=== PATIENT | male | born 1960 | race Caucasian/White ===

== ENCOUNTER 2020-11-05 17:56 | Emergency (ER) | payer BC ==
[2020-11-05 18:06] VITALS: BP 220/116; PULSE 61
[2020-11-05] MEDS ORDERED: Sodium Chloride 0.9% 10 ML Syringe FLUSH PRN (18:26)
[2020-11-05] MEDS ORDERED: HYDROmorphone 0.5 MG/0.5 ML Syringe IVPUSH ONE (18:26)
[2020-11-05] MEDS ORDERED: Sodium Chloride 0.9% 1,000 ML IV ONE (18:26)
--- NOTE | 2020-11-05 18:50 | EDM.PDOC ---
ED HPI GENERAL MEDICAL PROBLEM - General Chief Complaint: Flank Pain Stated Complaint: KIDNEY STONE Time Seen by Provider: 11/05/20 18:05 Source of Information: Reports: Patient History Limitations: Reports: No Limitations - History of Present Illness INITIAL COMMENTS - FREE TEXT/NARRATIVE: 59-year-old male presents to the emergency department this evening with complaints of left flank pain. Patient states he does have a history of kidney stones. Patient states left pain started this afternoon with an abrupt onset. He states that the pain is a stabbing/searing pain to his left flank that radiates around the left abdomen. He states that the pain is a colicky type of pain. Patient denies associated nausea or vomiting with this. He also denies any recent fever, chills, cough or vomiting. Onset: Today, Sudden Left Flank Pain Score (Numeric/FACES): 8 - Related Data Allergies Allergy/AdvReac Type Severity Reaction Status Date / Time fentanyl Allergy Severe Airway Verified 11/05/20 18:36 Tightness peanut oil Allergy Other Verified 08/10/15 07:08 bees Allergy Swelling Uncoded 08/10/15 07:08 Home Meds: Home Meds Chlorthalidone 1 tab PO DAILY 08/09/15 [History] Omeprazole 1 cap PO QAM 08/09/15 [History] Tamsulosin [Tamsulosin 24 Hr] 0.4 mg PO DAILY #10 cap.er 11/05/20 [Rx] Past Medical History Cardiovascular History: Reports: Hypertension Other Respiratory History: chronic airway obstruction Other Gastrointestinal History: diverticulosis, gastric ulcer, benign neoplasm of colon Other Neuro History: hand tremors - Past Surgical History GI Surgical History: Reports: Appendectomy, Hernia Repair/Other Other Musculoskeletal Surgeries/Procedures:: Left hand surgery after a saw accident, ORIF right radius Social & Family History - Tobacco Use Tobacco Use Status *Q: Former Tobacco User Used Tobacco, but Quit: Yes Month/Year Tobacco Last Used: 19 years ago - Caffeine Use Caffeine Use: Reports: None - Recreational Drug Use Recreational Drug Use: No ED ROS GENERAL - Review of Systems Review Of Systems: Comprehensive ROS is negative, except as noted in HPI. ED EXAM, RENAL/ - Physical Exam Exam: See Below Exam Limited By: No Limitations General Appearance: Alert, WD/WN, Mild Distress Eye Exam: Bilateral Eye: PERRL Ears: Normal External Exam, Hearing Grossly Normal Nose: Normal Inspection, Normal Mucosa, No Blood Throat/Mouth: Normal Inspection, Normal Voice, No Airway Compromise Head: Atraumatic, Normocephalic Neck: Normal Inspection, Supple, Non-Tender, Full Range of Motion Respiratory/Chest: No Respiratory Distress, Lungs Clear, Normal Breath Sounds, No Accessory Muscle Use, Chest Non-Tender Cardiovascular: Normal Peripheral Pulses, Regular Rate, Rhythm, No Edema, No Murmur GI/Abdominal: Normal Bowel Sounds, Soft, Non-Tender, No Distention (Male) Exam: Deferred Rectal (Males) Exam: Deferred Back Exam: Normal Inspection, Full Range of Motion. No: CVA Tenderness (L) Extremities: Normal Inspection, Normal Range of Motion, Non-Tender, No Pedal Edema, Normal Capillary Refill Neurological: Alert, Oriented, Normal Cognition Skin Exam: Warm, Dry, Intact, Normal Color, No Rash Lymphatic: No Adenopathy Course - Vital Signs Text/Narrative:: 59-year-old male presents with a history of left flank pain that started this afternoon abruptly. He states that he was just sitting at home when the pain started. He denies any recent trauma to that area. He denies any recent fever or chills. He does not have associated nausea with the pain. I have ordered labs, pain medication, and a ct of abdomen and pelvis without contrast, and a UA with micro. Last Recorded V/S: Last Vital Signs Temp 96.9 F 11/05/20 18:04 Pulse 61 11/05/20 18:04 Resp 16 11/05/20 18:04 BP 220/116 H 11/05/20 18:04 Pulse Ox 99 11/05/20 18:04 - Orders/Labs/Meds Orders: Active Orders 24 hr Category Date Time Status Abdomen Pelvis wo Cont [CT] Stat Exams 11/05/20 18:26 Taken Sodium Chloride 0.9% [Saline Flush] Med 11/05/20 18:26 Active 10 ml FLUSH ASDIRECTED PRN Saline Lock Insert [OM.PC] Stat Oth 11/05/20 18:26 Ordered Medication Orders Sodium Chloride (Saline Flush) 10 ml FLUSH ASDIRECTED PRN PRN Reason: Keep Vein Open Last Admin: 11/05/20 18:33 Dose: 10 ml Documented by: NISREEN Labs: Laboratory Tests 11/05/20 11/05/2021 Range/Units 18:25 18:25 19:05 WBC 6.65 (4.23-9.07) K/mm3 RBC 5.08 (4.63-6.08) M/mm3 Hgb 15.3 (13.7-17.5) gm/dl Hct 45.1 (40.1-51.0) % MCV 88.8 (79.0-92.2) fl MCH 30.1 (25.7-32.2) pg MCHC 33.9 (32.2-35.5) g/dl RDW Std Deviation 43.0 (35.1-43.9) fL Plt Count 205 (163-337) K/mm3 MPV 8.7 L (9.4-12.3) fl Neut % (Auto) 63.7 (34.0-67.9) % Lymph % (Auto) 24.2 (21.8-53.1) % [place] % (Auto) 9.5 (5.3-12.2) % Eos % (Auto) 2.1 (0.8-7.0) Baso % (Auto) 0.3 (0.1-1.2) % Neut # (Auto) 4.24 (1.78-5.38) K/mm3 Lymph # (Auto) 1.61 (1.32-3.57) K/mm3 [place] # (Auto) 0.63 (0.30-0.82) K/mm3 Eos # (Auto) 0.14 (0.04-0.54) K/mm3 Baso # (Auto) 0.02 (0.01-0.08) K/mm3 Sodium 144 (136-145) mEq/L Potassium 3.7 (3.5-5.1) mEq/L Chloride 102 (98-107) mEq/L Carbon Dioxide 33 H (21-32) mEq/L Anion Gap 12.7 (5-15) BUN 12 (7-18) mg/dL Creatinine 1.3 (0.7-1.3) mg/dL Est Cr Clr Drug Dosing 81.05 mL/min Estimated GFR (MDRD) 57 (>60) mL/min BUN/Creatinine Ratio 9.2 L (14-18) Glucose 129 H (74-106) mg/dL Calcium 9.1 (8.5-10.1) mg/dL Magnesium 2.0 (1.8-2.4) mg/dl Total Bilirubin 0.5 (0.2-1.0) mg/dL AST 17 (15-37) U/L ALT 30 (16-63) U/L Alkaline Phosphatase 108 (46-116) U/L Total Protein 8.2 (6.4-8.2) g/dl Albumin 4.1 (3.4-5.0) g/dl Globulin 4.1 gm/dL Albumin/Globulin Ratio 1.0 (1-2) Urine Color Yellow (Yellow) Urine Appearance Clear (Clear) Urine pH 6.5 (5.0-8.0) Ur Specific [place] 1.020 (1.005-1.030) Urine Protein Negative (Negative) Urine Glucose (UA) Negative (Negative) Urine Ketones Negative (Negative) Urine Occult Blood 2+ H (Negative) Urine Nitrite Negative (Negative) Urine Bilirubin Negative (Negative) Urine Urobilinogen 0.2 (0.2-1.0) Ur Leukocyte Esterase Negative (Negative) Urine RBC 5-10 H (0-5) /hpf Urine WBC 0-5 (0-5) /hpf Ur Squamous Epith Cells 0-5 (0-5) /hpf Urine Bacteria Occasional (FEW) /hpf Urine Mucus Not seen (FEW) /hpf Meds: Medications Generic Name Dose Route Start Last Admin Trade Name Shona PRN Reason Stop Dose Admin Sodium Chloride 10 ml 11/05/20 18:26 11/05/20 18:33 Saline Flush FLUSH 10 ml ASDIRECTED PRN Administration Keep Vein Open Discontinued Medications Generic Name Dose Route Start Last Admin Trade Name Shona PRN Reason Stop Dose Admin Hydromorphone HCl 0.5 mg 11/05/20 18:26 11/05/20 18:33 Dilaudid IVPUSH 11/05/20 18:27 0.5 mg ONETIME ONE Administration Sodium Chloride 1,000 mls @ 999 mls/hr 11/05/20 18:26 11/05/20 18:33 Normal Saline IV 11/05/20 19:26 999 mls/hr ONETIME ONE Administration Tamsulosin HCl 0.4 mg 11/05/20 20:16 11/05/20 20:27 Flomax PO 11/05/20 20:17 0.4 mg ONETIME ONE Administration - Radiology Interpretation Free Text/Narrative:: V rad interpretation CT of the abdomen and pelvis without contrast: There is an obstructing calcification at the left uretopelvic junction which measures 2mm. Normal bilateral renal parenchymal bulk. Multiple small calcifications of each renal sinus measuring up to 5 mm. No solid renal mass. No right ureteral calculus. No right hydronephrosis. - Re-Assessments/Exams Free Text/Narrative Re-Assessment/Exam: 11/05/20 20:37 Patient has finished his IV fluids and his pain is under control at this time. I will discharge him to home. He will need to strain all urine. Give him a prescription for Percocet. No pharmacies are open this evening so he will get it through our [facility]. 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 Departure - Departure Time of Disposition: 20:38 Disposition: Home, Self-Care 01 Condition: Good Clinical Impression: Kidney stone on left side - Discharge Information Prescriptions: Tamsulosin [Tamsulosin 24 Hr] 0.4 mg PO DAILY #10 cap.er Referrals: Lebron Del Angel Jr, MD [Primary Care Provider] - Forms: ED Department Discharge Additional Instructions: You were seen in the ED this evening with complaints of flank pain. CT scan revealed that you do have a kidney stone. You can go home and rest. Drink lots of water to help flush the kidneys and ureters. You will likely have some continued pain until the stone passes. May take ibuprofen 600mg every 6-8 hours or tylenol 650mg every 4 hours for the pain. I have given a prescription for Percocet. You can take one tab every 6 hours as needed for more severe pain. Be aware that this medication contains tylenol. It is a narcotic and you should not drink alcohol, drive or operate heavy machinery while taking this medication. I have sent a prescription for Flomax to your pharmacy. You were given a dose in the ED tonight so you can start this med tomorrow. Take one tab every 24 hours. Strain all of your urine until the stone passes. I should pass in the next few days. If you are not better, follow up with your primary care provider or return to the ED. Sepsis Event Note (ED) - Evaluation Sepsis Screening Result: No Definite Risk - Focused Exam Vital Signs: Vital Signs Temp Pulse Resp BP Pulse Ox 11/05/20 18:04 96.9 F 61 16 220/116 H 99 - My Orders Last 24 Hours: My Active Orders 11/05/20 18:26 Abdomen Pelvis wo Cont [CT] Stat Sodium Chloride 0.9% [Saline Flush] 10 ml FLUSH ASDIRECTED PRN Saline Lock Insert [OM.PC] Stat - Assessment/Plan Last 24 Hours: My Active Orders 11/05/20 18:26 Abdomen Pelvis wo Cont [CT] Stat Sodium Chloride 0.9% [Saline Flush] 10 ml FLUSH ASDIRECTED PRN Saline Lock Insert [OM.PC] Stat
[2020-11-05] MEDS ORDERED: Tamsulosin 0.4 MG Cap.ER PO ONE (20:16)
--- NOTE | 2020-11-06 06:41 | CT ---
CT abdomen and pelvis Technique: Multiple axial sections were obtained from above the dome of the diaphragm inferiorly through the pubic symphysis. Intravenous contrast was not utilized. Study was performed as a ureteral stone protocol. Findings: Visualized lung bases show nothing acute. Multiple small nonobstructing calculi are seen within both kidneys. Left kidney shows minimally prominent left ureter which is caused by a proximal left ureteral stone measuring about 3 mm. This is located slightly past the UPJ. No additional ureteral calcification is appreciated. Noncontrast appearance of the liver shows no focal abnormality. Spleen appears within normal limits. Adrenal glands show no nodule. Pancreas shows no discrete abnormality. Gallbladder contains no calcified gallstones. Abdominal aorta shows atherosclerotic change with no aneurysm. No retroperitoneal adenopathy is seen. Atherosclerotic calcification continues into the iliac vessels. Appendix is not visualized with certainty. No pelvic mass or adenopathy is seen. Scattered diverticuli are seen within the colon. No inflammatory change is seen around any of these diverticuli. No free fluid or other inflammatory change is seen. Bone window settings were reviewed which show mild scattered degenerative change primarily within the lumbar spine. No acute osseous abnormality is appreciated. Impression: 1. 3 mm obstructing stone within the proximal left ureter located slightly past the UPJ. 2. Multiple small nonobstructing calculi within both kidneys. 3. Other findings as noted above believed to be pre-existing and chronic. 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
== END 2020-11-05 20:55 | disposition home or self-care (01) ==
LOC: JD.ED 17:56
DX: N20.2 Calculus of kidney with calculus of ureter (principal); I10 Essential (primary) hypertension; Z87.891 Personal history of nicotine dependence; Z91.030 Bee allergy status; Z91.010 Allergy to peanuts; Z88.5 Allergy status to narcotic agent; Z79.899 Other long term (current) drug therapy
CPT/HCPCS: 36415; 74176; 80053; 81001; 83735; 85025; 96374; 99284; A9270; J1170; J7030

== ENCOUNTER 2020-12-15 12:49 | Emergency (ER) | payer BC ==
[2020-12-15 13:41] VITALS: PULSE 73
--- NOTE | 2020-12-15 14:23 | EDM.PDOC ---
ED HPI GENERAL MEDICAL PROBLEM - General Chief Complaint: General Stated Complaint: POSS COVID Time Seen by Provider: 12/15/20 13:07 Source of Information: Reports: Patient, RN Notes Reviewed History Limitations: Reports: No Limitations - History of Present Illness INITIAL COMMENTS - FREE TEXT/NARRATIVE: Patient is a 60-year-old male presenting to the emergency department with r equest of having a Covid test. He was notified by the [place] department of health that he was exposed to a Covid positive individual. He states that he had exposure on Friday as well as Friday of this week. He denies having any symptoms. He does have a slight dry cough, however she states this is chronic for him and was going on well before her exposure. He also reports having some diarrhea yesterday, however this has resolved. He received his first Pfizer Covid vaccination 2 days ago. He has had no fever, chills, nausea, vomiting, chest pain, shortness of breath. - Related Data Allergies Allergy/AdvReac Type Severity Reaction Status Date / Time fentanyl Allergy Severe Airway Verified 12/15/20 13:33 Tightness peanut oil Allergy Other Verified 12/15/20 13:33 bees Allergy Swelling Uncoded 08/10/15 07:08 Home Meds: Home Meds Chlorthalidone 1 tab PO DAILY 08/09/15 [History] Omeprazole 1 cap PO QAM 08/09/15 [History] Past Medical History HEENT History: Reports: Impaired Vision Cardiovascular History: Reports: Hypertension Other Respiratory History: chronic airway obstruction Other Gastrointestinal History: diverticulosis, gastric ulcer, benign neoplasm of colon Genitourinary History: Reports: Renal Calculus Musculoskeletal History: Reports: Arthritis Other Neuro History: hand tremors Psychiatric History: Reports: None Endocrine/Metabolic History: Reports: None Hematologic History: Reports: None Immunologic History: Reports: None Oncologic (Cancer) History: Reports: None Dermatologic History: Reports: None - Infectious Disease History Infectious Disease History: Reports: Chicken Pox - Past Surgical History Head Surgeries/Procedures: Reports: None HEENT Surgical History: Reports: Oral Surgery GI Surgical History: Reports: Appendectomy, Hernia Repair/Other Other Musculoskeletal Surgeries/Procedures:: Left hand surgery after a saw accident, ORIF right radius Social & Family History - Family History Family Medical History: No Pertinent Family History Oncologic: Reports: Breast, Skin - Tobacco Use Tobacco Use Status *Q: Former Tobacco User Years of Tobacco use: 20 Used Tobacco, but Quit: Yes Month/Year Tobacco Last Used: 02/2001 - Caffeine Use Caffeine Use: Reports: Coffee - Recreational Drug Use Recreational Drug Use: No ED ROS GENERAL - Review of Systems Review Of Systems: See Below Constitutional: Reports: No Symptoms. Denies: Fever, Chills, Weakness, Fatigue, Decreased Appetite HEENT: Reports: No Symptoms Respiratory: Reports: Cough. Denies: Shortness of Breath, Wheezing, Pleuritic Chest Pain Cardiovascular: Reports: No Symptoms Endocrine: Reports: No Symptoms GI/Abdominal: Reports: Diarrhea (yesterday. Resolved). Denies: Abdominal Pain, Nausea, Vomiting : Reports: No Symptoms Musculoskeletal: Reports: No Symptoms Skin: Reports: No Symptoms Neurological: Reports: No Symptoms Psychiatric: Reports: No Symptoms Hematologic/Lymphatic: Reports: No Symptoms Immunologic: Reports: No Symptoms ED EXAM, GENERAL - Physical Exam Exam: See Below Exam Limited By: No Limitations General Appearance: Alert, WD/WN, No Apparent Distress Respiratory/Chest: No Respiratory Distress, Lungs Clear, Normal Breath Sounds, No Accessory Muscle Use, Chest Non-Tender Cardiovascular: Normal Peripheral Pulses, Regular Rate, Rhythm, No Edema, No Gallop, No JVD, No Murmur, No Rub GI/Abdominal: Normal Bowel Sounds, Soft, Non-Tender, No Organomegaly, No Distention, No Abnormal Bruit, No Mass Neurological: Alert, Oriented, CN II-XII Intact, Normal Cognition, Normal Gait, Normal Reflexes, No Motor/Sensory Deficits Psychiatric: Normal Affect, Normal Mood Skin Exam: Warm, Dry, Intact, Normal Color, No Rash Course - Vital Signs Last Recorded V/S: Last Vital Signs Temp 97.3 F 12/15/20 13:39 Pulse 73 12/15/20 13:39 Resp 18 12/15/20 13:39 BP 198/109 H 12/15/20 13:51 Pulse Ox 99 12/15/20 13:39 - Orders/Labs/Meds Labs: Laboratory Tests 12/15/20 Range/Units 13:40 SARS-CoV-2 RNA (HELEN) Negative (NEGATIVE) - Re-Assessments/Exams Free Text/Narrative Re-Assessment/Exam: Patient is a 60-year-old male presenting to the emergency department with request of having a Covid test completed. They were notified by the department of health that they had a Covid exposure on Friday and Friday of this week. He did have small a lot of diarrhea yesterday but this has resolved. He has chronic cough, but this has been present for quite some time and has not changed since his exposure. I have ordered a 1 hour Covid test. 12/15/20 14:45 Patient's Covid test was found to be negative. We will discharge him home with the advice to follow the recommendation of the [facility] with regards to quarantine. Discharge instructions as documented. Departure - Departure Time of Disposition: 14:43 Disposition: Home, Self-Care 01 Condition: Good Clinical Impression: Encounter for laboratory testing for COVID-19 virus - Discharge Information *PRESCRIPTION DRUG MONITORING PROGRAM REVIEWED*: No *COPY OF PRESCRIPTION DRUG MONITORING REPORT IN PATIENT ARASH: No Referrals: Lebron Del Angel Jr, MD [Primary Care Provider] - Forms: ED Department Discharge Additional Instructions: You were seen in the emergency department today with request to having a Covid test completed due to a known Covid exposure. You were tested and the test was found to be negative. Please follow the recommendations as set forth by the [facility] with regards to your quarantine. 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 If you should develop any concerning symptoms that require medical treatment, do not hesitate to return to the emergency department for reevaluation. Sepsis Event Note (ED) - Evaluation Sepsis Screening Result: No Definite Risk - Focused Exam Vital Signs: Vital Signs Temp Pulse Resp BP Pulse Ox 12/15/20 13:51 198/109 H 12/15/20 13:39 97.3 F 73 18 201/109 H 99
[2020-12-15 14:55] VITALS: BP 178/94
== END 2020-12-15 14:53 | disposition home or self-care (01) ==
LOC: JD.ED 12:49
DX: R05 Cough (principal); I10 Essential (primary) hypertension; Z20.822 Contact with and (suspected) exposure to COVID-19; Z88.4 Allergy status to anesthetic agent; Z91.010 Allergy to peanuts; Z91.030 Bee allergy status; Z79.899 Other long term (current) drug therapy; Z87.891 Personal history of nicotine dependence
CPT/HCPCS: 99282; 99283; U0002